=== PATIENT | female | born 1980 | race Caucasian/White ===

== ENCOUNTER 2019-10-30 19:22 | Emergency (ER) | payer OTHER ==
[~2019-10-30] VITALS: Ht 162.6 cm; Wt 61.0 kg
[2019-10-30] MEDS ORDERED: ONDANSETRON HCL 4MG/2ML INJ IV ONE (19:45)
[2019-10-30] MEDS ORDERED: MORPHINE SULFATE 4 MG/ML CPJ (NOT FOR IM USE) IV ONE (19:45)
[2019-10-30 20:32] LABS: HCG SCREEN NEGATIVE
[2019-10-30] MEDS ORDERED: ETOMIDATE 2MG/ML 10ML VIAL IV ONE (21:30)
[2019-10-30] MEDS ORDERED: LORAZEPAM 2MG/ML CPJ ONE (22:03)
[2019-10-31] MEDS ORDERED: ONDANSETRON HCL 4MG/2ML INJ IV ONE
[2019-10-31] MEDS ORDERED: KETOROLAC 30MG/ML VIAL IV ONE
[2019-10-31 00:33] VITALS: BP 112/70
== END 2019-10-31 01:27 | disposition home or self-care (01) ==
LOC: ER 19:22
DX: S52.531A Colles' fracture of right radius, initial encounter for closed fracture (principal); S52.614A Nondisplaced fracture of right ulna styloid process, initial encounter for closed fracture; S39.012A Strain of muscle, fascia and tendon of lower back, initial encounter; V43.52XA Car driver injured in collision with other type car in traffic accident, initial encounter; Y93.89 Activity, other specified; Y92.488 Other paved roadways as the place of occurrence of the external cause
CPT/HCPCS: 25605; 73070; 73110; 81025; 84703; 96374; 96375; 96376; 99152; 99285; J1885; J2060; J2270; J2405; J3490